=== PATIENT | male | born 1935 | race Caucasian/White ===

== ENCOUNTER 2022-07-03 12:19 | Emergency (ER) | payer MEDICARE ==
[2022-07-03] MEDS ORDERED: Ondansetron PF 4 MG/2 ML Vial ONE (13:48)
[2022-07-03 13:53] LABS: Hemoglobin 11.6 g/dL (13.5-17.5); MDiff Complete? YES; Mean Corpuscular HGB CONC 34.3 g/dL (32.0-36.0); Mean Corpuscular Hemoglobin 32.2 pg (27.0-33.0); Mean Corpuscular Volume 93.9 fl (81.2-95.1); Mean Platelet Volume 12.3 fl (7.4-10.4); Platelet Count 106 10x3/uL (150-450); White Blood Cell (WBC) Count 3.2 10x3/uL (3.5-10.5)
[2022-07-03 14:20] LABS: Band 3 % (5-11); Eosinophils 1 % (0-10); Lymphocytes 13 % (21-51); Monocytes 14 % (0-10); Neutrophil 68 % (42-75); Ovalocytes SLIGHT = 2-5 cells (100X) (0-1/hpf); Reactive Lymphocytes 1 % (0-10)
[2022-07-03 14:21] LABS: Platelet Morphology Comment Appears Decreased
[2022-07-03 14:54] LABS: ALT (SGPT) 40 U/L (8-55); AST (SGOT) 29 U/L (5-34); Albumin 3.6 g/dL (3.4-4.8); Alkaline Phosphatase 72 U/L (40-110); Anion Gap 10 mmol/L (10-20); BUN (Urea Nitrogen) 25 mg/dL (8.4-25.7); Calc. Creatinine Clearance 0 mL/min (70-130); Calcium 8.8 mg/dL (7.8-10.44); Carbon Dioxide 21 mmol/L (23-31); Chloride 110 mmol/L (98-107); Estimated GFR 77; Globulin 2.5 g/dL (2.4-3.5); Glucose 95 mg/dL (83-110); Lipase 31 U/L (8-78); Magnesium 1.6 mg/dL (1.6-2.6); Potassium 3.9 mmol/L (3.5-5.1); Protein, Total 6.1 g/dL (5.8-8.1); Sodium 137 mmol/L (136-145)
== END 2022-07-03 16:58 | disposition home or self-care (01) ==
LOC: CSHERS 12:19
DX: U07.1 COVID-19 (principal); I11.0 Hypertensive heart disease with heart failure; I50.9 Heart failure, unspecified; E78.5 Hyperlipidemia, unspecified; E03.9 Hypothyroidism, unspecified; I25.2 Old myocardial infarction
CPT/HCPCS: 80053; 83690; 83735; 85025; 93005; 96374; J2405